=== PATIENT | male | born 1985 | race Caucasian/White ===

== ENCOUNTER 2020-09-25 10:41 | Outpatient (REF) | payer OTHER, SELFPAY ==
[2020-09-25 13:11] LABS: Alanine Aminotransferase 34 U/L (0-40); Albumin Level 4.8 g/dL (3.5-5.0); Alkaline Phosphatase 79 U/L (39-117); Anion Gap 13 (12-20); Aspartate Amino Transferase 23 U/L (5-37); Bilirubin Total 0.5 mg/dL (0.0-1.0); Blood Urea Nitrogen 14 mg/dL (9-16); Calcium 9.5 mg/dL (8.4-10.2); Carbon Dioxide 28 mmol/L (22-29); Estimated Glomerular Filt Rate > 60; Glucose Fasting 87 mg/dL (60-99); Total Protein 7.7 g/dL (6.5-8.0)
[2020-09-25 13:17] LABS: Chloride 101 mmol/L (96-108); Potassium 4.4 mmol/L (3.3-5.1); Sodium 138 mmol/L (135-145)
== END 2020-09-25 10:42 | disposition home or self-care (01) ==
LOC: HO.MANLDS 10:41
PROVIDERS: PCP Internal Medicine; Visit Provider Physician Assistant
DX: E78.5 Hyperlipidemia, unspecified (principal)
CPT/HCPCS: 36415; 80053

== ENCOUNTER 2021-07-14 11:54 | Outpatient (REF) | payer OTHER, SELFPAY ==
[2021-07-14 13:18] LABS: Alanine Aminotransferase 44 U/L (0-40); Albumin Level 4.5 g/dL (3.5-5.0); Alkaline Phosphatase 83 U/L (39-117); Aspartate Amino Transferase 21 U/L (5-37); Bilirubin Direct < 0.2 mg/dL (0.0-0.5); Bilirubin Total 0.2 mg/dL (0.0-1.0); Total Protein 7.4 g/dL (6.5-8.0)
== END 2021-07-14 11:55 | disposition home or self-care (01) ==
LOC: HO.MANLDS 11:54
PROVIDERS: PCP Physician Assistant; Visit Provider Physician Assistant
DX: K76.9 Liver disease, unspecified (principal)
CPT/HCPCS: 36415; 80076

== ENCOUNTER 2022-05-16 13:55 | Outpatient (REF) | payer OTHER, SELFPAY ==
[2022-05-16 18:28] LABS: MANUAL DIFF FLAG NO
[2022-05-16 18:47] LABS: Alanine Aminotransferase 35 U/L (0-40); Albumin Level 4.6 g/dL (3.5-5.0); Alkaline Phosphatase 87 U/L (39-117); Anion Gap 15 (12-20); Aspartate Amino Transferase 20 U/L (5-37); Bilirubin Total 0.3 mg/dL (0.0-1.0); Blood Urea Nitrogen 12 mg/dL (9-16); Calcium 9.5 mg/dL (8.4-10.2); Carbon Dioxide 28 mmol/L (22-29); Chloride 103 mmol/L (96-108); Cholesterol 290 mg/dL; Estimated Glomerular Filt Rate > 60; Glucose Random 108 mg/dL (60-115); HDL Cholesterol 53 mg/dL; LDL Cholesterol Calculated 184 mg/dl; Potassium 4.2 mmol/L (3.3-5.1); Sodium 142 mmol/L (135-145); Total Protein 7.4 g/dL (6.5-8.0); Triglycerides 267 mg/dL
[2022-05-16 18:56] LABS: Basophils Percent Auto 0.2 % (0-2); Eosinophils Absolute Auto 0.1 X10*3/uL (0.0-0.4); Eosinophils Percent Auto 0.8 % (0-4); Hematocrit 44.4 % (42.0-52.0); Hemoglobin 14.7 g/dl (14.0-18.0); Imm Gran Abs Auto 0.05 X10*3/uL (0.00-0.03); Imm Gran Pct Auto 0.8 % (0.0-0.4); Lymphocytes Absolute Auto 1.5 X10*3/uL (1.2-4.9); Lymphocytes Percent Auto 25.8 % (20-40); Mean Corpuscular HGB Conc 33.1 g/dl (31.0-36.0); Mean Corpuscular Hemoglobin 28.1 pg (27.0-33.0); Mean Corpuscular Volume 84.7 fL (80.0-98.0); Mean Platelet Volume 10.6 fL (9.4-12.4); Monocytes Absolute Auto 0.6 X10*3/uL (0.1-1.2); Monocytes Percent Auto 10.4 % (2-11); Neutrophils Absolute Auto 3.7 x10*3/uL (2.0-8.3); Platelet Count 293 X10*3/uL (160-400); Red Blood Count 5.24 X10*6/uL (4.60-5.80); Red Cell Distribution Width 13.1 % (11.0-16.0)
== END 2022-05-16 13:56 | disposition home or self-care (01) ==
LOC: HO.MANLDS 13:55
PROVIDERS: Visit Provider Physician Assistant
DX: Z00.00 Encounter for general adult medical examination without abnormal findings (principal)
CPT/HCPCS: 36415; 80053; 80061; 85025

== ENCOUNTER 2024-10-29 09:53 | Outpatient (REF) | payer OTHER, SELFPAY ==
--- OUTSIDE RECORDS SUMMARY | 2024-10-29 11:18 | XMS_ITS | Continuity of Care Document ---
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 It does not include entries that were removed or entered in error. Problem Status Onset Date Problem Type Date of Resolution Comments Source joint pain, localized in the knee Inactive 01/31/20 12 Condition joint pain, localized in the knee: He was seen by orthopedics here. - Conservative management recommended. - f/u with PCP within [address] 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 Reviewed medical records. Reviewed DD Form 2796. Medical concerns addressed below. 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 No acute mental health concerns at this time. 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 Entered By: SHIRIN ERNANDEZ Comment: tobacco-noneDec 2012 Entered By: SHIRIN ERNANDEZ Comment: alcohol-social, no problemsDe 2012 Entered By: SHIRIN ERNANDEZ Comment: living with parentsDe 2012 Entered By: SHIRIN ERNANDEZ Comment: [facility] care [facility] [place] [facility] Injury of knee Active Condition Jul [id number] Entered By: SHIRIN ERNANDEZ Comment: surgery right knee 9.2011 [facility] [facility] testicular cancer Active Condition Jul 30, 2013 Entered By: SHIRIN ERNANDEZ Comment: age 14 right testicular. no chemo or radiation [facility] [place] [facility] Patient Education - Medication Inactive Condition [facility] Other Physical Therapy Inactive Condition DoD joint pain, localized in the shoulder Active Condition DoD common cold Inactive Condition DoD cellulitis of the right arm Inactive Condition DoD visit for: services physical in-theatre Inactive Condition DoD sebaceous cyst Inactive Condition DoD neoplasm - soft tissue Inactive Condition DoD epidermal inclusion cyst Inactive Condition DoD neck strain Inactive Condition Pt to st art medication as directedPt to f/u in 1 day, sooner PRN, immediately if difficulty breathing/nmbne ss/tinglingPt to rest, ice areaPt to be placed on waiver [facility] Patient Education - Injury Prevention Inactive Condition DoD superficial injury abrasion of lower leg Inactive Condition LT ant leg; recommended OTC Neosporin cream for next 2-3 days as well as protective bandages; keep wound clean and dry as able. [facility] Medications Combined list of outpatient medications from Department of Defense and Veterans Affairs facilities.Medications provided include 1) outpatient medications from the last 15 months, and 2) patient-reported medications. Medication Details Route Status Patient Instructions Prescription Expires Prescription Number Last Dispense Date Ordering Provider Order Date Order Qty Source azithromyci n 250 mg oral tablet 0 total refill(s ) Ordered 2021 No Facilit y Access baclofen 10 mg oral tablet baclofen 10 mg oral tablet Start Date: 10/22/21 Status: Ordered Repeat number: 1 Ordered 2021 No Facilit y Access buPROPion 150 mg/24 hours (XL) oral tablet, extended release buPROPio n 150 mg/24 hours (XL) oral tablet, extended release Start Date: 06/16/21 Status: Ordered Repeat number: 1 Ordered 2021 No Facilit y Access buPROPion 150 mg/24 hours (XL) oral tablet, extended release buPROPio n 150 mg/24 hours (XL) oral tablet, extended release Start Date: 11/13/21 Status: Ordered Repeat number: 1 Ordered 2021 No Facilit y Access buPROPion 150 mg/24 hours (XL) oral tablet, extended release buPROPio n 150 mg/24 hours (XL) oral tablet, extended release Start Date: 03/15/21 Status: Ordered Repeat number: 1 Ordered 2021 No Facilit y Access buPROPion 150 mg/24 hours (XL) oral tablet, extended release buPROPio n 150 mg/24 hours (XL) oral tablet, extended release Start Date: 04/23/21 Status: Ordered Repeat number: 1 Ordered 2021 No Facilit y Access cyclobenzap rine 10 mg oral tablet cycloben zaprine 10 mg oral tablet Start Date: 11/13/21 Status: Ordered Repeat number: 1 Ordered 2021 No Facilit y Access cyclobenzap rine 10 mg oral tablet cycloben zaprine 10 mg oral tablet Start Date: 05/06/21 Status: Ordered Repeat number: 1 Ordered 2021 No Facilit y Access cyclobenzap rine 10 mg oral tablet cycloben zaprine 10 mg oral tablet Start Date: 09/29/20 Status: Ordered Repeat number: 1 Ordered 2021 No Facilit y Access cyclobenzap rine 10 mg oral tablet cycloben zaprine 10 mg oral tablet Start Date: 06/26/21 Status: Ordered Repeat number: 1 Ordered 2021 No Facilit y Access DULoxetine 40 mg oral delayed release capsule DULoxeti ne 40 mg oral delayed release capsule Start Date: 10/22/21 Status: Ordered Repeat number: 1 Ordered 2021 No Facilit y Access DULoxetine 60 mg oral delayed release capsule DULoxeti ne 60 mg oral delayed release capsule Start Date: 11/13/21 Status: Ordered Repeat number: 1 Ordered 2021 No Facilit y Access gabapentin 300 mg oral capsule gabapent in 300 mg oral capsule Start Date: 10/22/21 Status: Ordered Repeat number: 1 Ordered 2021 No Facilit y Access nabumetone 500 mg oral tablet nabumeto ne 500 mg oral tablet Start Date: 10/28/21 Status: Ordered Repeat number: 1 Ordered 2021 No Facilit y Access predniSONE 20 mg oral tablet predniSO NE 20 mg oral tablet Start Date: 09/29/20 Status: Ordered Repeat number: 1 Ordered 2021 No Facilit y Access predniSONE 20 mg oral tablet predniSO NE 20 mg oral tablet Start Date: 06/26/21 Status: Ordered Repeat number: 1 Ordered 2021 No Facilit y Access predniSONE 20 mg oral tablet predniSO NE 20 mg oral tablet Start Date: 05/06/21 Status: Ordered Repeat number: 1 Ordered 2021 No Facilit y Access sertraline 25 mg oral tablet sertrali ne 25 mg oral tablet Start Date: 04/13/21 Status: Ordered Repeat number: 1 Ordered 2021 No Facilit y Access sertraline 25 mg oral tablet sertrali ne 25 mg oral tablet Start Date: 04/30/21 Status: Ordered Repeat number: 1 Ordered 2021 No Facilit y Access sertraline 25 mg oral tablet sertrali ne 25 mg oral tablet Start Date: 05/16/21 Status: Ordered Repeat number: 1 Ordered 2021 No Facilit y Access sertraline 25 mg oral tablet sertrali ne 25 mg oral tablet Start Date: 09/21/21 Status: Ordered Repeat number: 1 Ordered 2021 No Facilit y Access sertraline 50 mg oral tablet sertrali ne 50 mg oral tablet Start Date: 07/13/21 Status: Ordered Repeat number: 1 Ordered 2021 No Facilit y Access sertraline 50 mg oral tablet sertrali ne 50 mg oral tablet Start Date: 06/15/21 Status: Ordered Repeat number: 1 Ordered 2021 No Facilit y Access Allergies, Adverse Reactions, Alerts Combined list of allergies from Department of Defense and Veterans Affairs facilities. It does not include entries that were removed or entered in error. Substance Category Reaction Severity Reaction type Status Date Reported Comments Source erythromyc in-sulfiso xazole Propensity to adverse reactions to substance Unknown Active 5 Unknown Organization [facility] (BRANDEN E-SUCC/SUL FISOXAZOLE ) Drug allergy (disorder) Unknown active 5 [employer] Immunizations Combined list of available immunizations from the Department of Defense and Veterans Affairs facilities. Immunization Series Date Given Administered By Site Reaction Lot Number CVX Code Drug Bulk Picker Status Comments Source Influenza, injectable, quadrivalent, preservative free 0 2021 [id number] 150 [employer]Kline (SKB) complet ed Influenza , injectabl e, quadrival ent, preservat deshaun free [facility] COVID Vaccine Moderna 2021 TRS 207 complet ed COVID Vaccine Moderna 09/03/21 Given Ambulat ory Pharmac y COVID-19, mRNA, LNP-S, PF, 100 mcg or 50 mcg dose 2021 ADITYA [employer] (MOD) Not Given COVID-19, mRNA, LNP-S, PF, 100 mcg or 50 mcg dose DoD SARS-COV-2 (COVID-19) vaccine, mRNA, spike protein, LNP, preservative free, 100 mcg or 50 mcg dose 0 2021 Unknown, Provider TRS 207 [employer] (MOD) complet ed SARS-COV- 2 (COVID-19 ) vaccine, mRNA, spike protein, LNP, preservat deshaun free, 100 mcg or 50 mcg dose DoD influenza, injectable, quadrivalent- pf 2020 [id number] 150 [place] complet ed influenza , injectabl e, quadrival ent-pf 05/13/21 Given Ambulat ory Pharmac y Influenza, injectable, quadrivalent, preservative free 1 2020 [id number] 150 [facility] (SKB) complet ed Influenza , injectabl e, quadrival ent, preservat deshaun free DoD tetanus, diphtheria, acellular pertu is 2020 [id number] 115 sanofi pasteur complet ed tetanus, diphtheri a, acellular pertussis 04/02/21 Given Ambulat ory Pharmac y tetanus toxoid, reduced diphtheria toxoid, and acellular pertu is vaccine, adsorbed 4 2020 [id number] 115 Sanofi Pasteur (PMC) complet ed tetanus toxoid, reduced diphtheri a toxoid, and acellular pertussis vaccine, adsorbed DoD COVID Vaccine Moderna 2020 [id number] 207 complet ed COVID Vaccine Moderna 12/04/20 Given Ambulat ory Pharmac y SARS-COV-2 (COVID-19) vaccine, mRNA, spike protein, LNP, preservative free, 100 mcg or 50 mcg dose 2 2020 [id number] 207 [employer] (MOD) complet ed SARS-COV- 2 (COVID-19 ) vaccine, mRNA, spike protein, LNP, preservat deshaun free, 100 mcg or 50 mcg dose DoD COVID Vaccine Moderna 2020 [id number] 207 complet ed COVID Vaccine Moderna 10/31/20 Given Ambulat ory Pharmac y SARS-COV-2 (COVID-19) vaccine, mRNA, spike protein, LNP, preservative free, 100 mcg or 50 mcg dose 1 2020 [id number] 207 Moderna [place], Inc. (MOD) complet ed SARS-COV- 2 (COVID-19 ) vaccine, mRNA, spike protein, LNP, preservat deshaun free, 100 mcg or 50 mcg dose DoD influenza, injectable, quadrivalent- pf 2019 [id number] 077 150 Seq[employer] complet ed influenza , injectabl e, quadrival ent-pf 07/05/20 Given Ambulat ory Pharmac y Influenza, injectable, quadrivalent, preservative free 1 2019 [id number] 077 150 [employer] (SEQ) complet ed Influenza , injectabl e, quadrival ent, preservat deshaun free DoD influenza, injectable, quadrivalent- pf 2018 [id number] 520 150 [employer] complet ed influenza , injectabl e, quadrival ent-pf 05/26/19 Given Ambulat ory Pharmac y Influenza, injectable, quadrivalent, preservative free 1 2018 [id number] 520 150 [employer] (SEQ) complet ed Influenza , injectabl e, quadrival ent, preservat deshaun free DoD influenza, injectable, quadrivalent 2017 [id number] 158 [employer] complet ed influenza , injectabl e, quadrival ent 06/13/18 Given Ambulat ory Pharmac y influenza, injectable, quadrivalent, contains preservative 15 2017 [id number] 158 Se[employer] (SEQ) comple t ed influenza , injectabl e, quadrival ent, contains preservat deshaun DoD typhoid Vi capsular polysaccharid e vac 2017 [id number] 101 sanofi pasteur complet ed typhoid Vi capsular polysacch aride vac 12/23/17 Given Ambulat ory Pharmac y typhoid Vi capsular polysaccharid e vaccine 1 2017 [id number] 101 Sanofi Pasteur (PMC) complet ed typhoid Vi capsular polysacch aride vaccine DoD measles virus vaccine 0 2017 05 () Not Given measles virus vaccine DoD rubella virus vaccine 0 2017 06 () Not Given rubella virus vaccine DoD mumps virus vaccine 0 2017 07 () Not Given mumps virus vaccine DoD varicella virus vaccine 0 2017 21 () Not Given varicella virus vaccine DoD Influenza, inj, MDCK, quadrivalent- pf [id number] 171 Se[employer] complet ed Influenza , inj, MDCK, quadrival ent-pf 06/23/17 Given Ambulat ory Pharmac y Influenza, injectable, Madin Millie Canine Kidney, preservative free, quadrivalent 14 [id number] 171 Se[employer]irus (SEQ) comple t ed Influenza , injectabl e, Madin [place] Canine Kidney, preservat deshaun free, quadrival ent DoD influenza, seasonal, injectable-pf 2015 [id number] 140 Seqirus complet ed influenza , seasonal, injectabl e-pf 06/04/16 Given Ambulat ory Pharmac y Influenza, seasonal, injectable, preservative free 1 2015 [id number] 140 Se[employer]irus (SEQ) comple t ed Influenza , seasonal, injectabl e, preservat deshaun free DoD typhoid Vi capsular polysaccharid e vac 2015 [id number] 101 sanofi pasteur complet ed typhoid Vi capsular polysacch aride vac 11/13/15 Given Ambulat ory Pharmac y typhoid Vi capsular polysaccharid e vaccine 2 2015 E9250-6 101 Sanofi Pasteur (PMC) complet ed typhoid Vi capsular polysacch aride vaccine DoD influenza, seasonal, injectable 2014 [id number] [id number] 141 CSL Behring complet ed influenza , seasonal, injectabl e 05/23/15 Given Ambulat ory Pharmac y Influenza, seasonal, injectable 1 2014 [id number] 1A 141 CSL [employer]. (CSL) complet ed Influenza , seasonal, injectabl e DoD Influenza, injectable, MDCK-pf 2013 [id number] 153 Novartis Pharmaceutica complet ed Influenza , injectabl e, MDCK-pf 05/24/14 Given Ambulat ory Pharmac y Influenza, injectable, Madin [place] Canine Kidney, preservative free 11 2013 [id number] 153 Novartis Pharmaceutica l Martha. (NOV) complet ed Influenza , injectabl e, Madin [place] Canine Kidney, preservat deshaun free DoD FLU,3 YRS (HISTORICAL) 2012 88 complet ed [place] [facility] [place] [facility] Influenza, injectable, MDCK-pf 2012 [id number] 153 Novartis Pharmaceutica complet ed Influenza , injectabl e, MDCK-pf 06/16/13 Given Ambulat ory Pharmac y Influenza, injectable, Madin Millie Canine Kidney, preservative free 0 2012 [id number] 153 Novartis Pharmaceutica l Martha. (NOV) complet ed Influenza , injectabl e, Madin Millie Canine Kidney, preservat deshaun free DoD influenza, seasonal, injectable-pf 2011 [id number] 140 CSL Behring complet ed influenza , seasonal, injectabl e-pf 06/17/12 Given Ambulat ory Pharmac y Influenza, seasonal, injectable, preservative free 9 2011 [id number] 140 [facility] [employer] ([facility]) complet ed Influenza , seasonal, injectabl e, preservat deshaun free DoD anthrax vaccine 2011 [id number] 24 [employer] complet ed anthrax vaccine 10/31/11 Given Ambulat ory Pharmac y anthrax vaccine 3 2011 [id number] 24 [employer] [place] (MIP) complet ed anthrax vaccine DoD influenza, seasonal, injectable 2010 [id number] 1A 141 CSL Behring complet ed influenza , seasonal, injectabl e 05/13/11 Given Ambulat ory Pharmac y anthrax vaccine 2010 [id number] 24 [employer] complet ed anthrax vaccine 05/13/11 Given Ambulat ory Pharmac y anthrax vaccine 2 2010 [id number] 24 [employer] [place] (MIP) complet ed anthrax vaccine DoD Influenza, seasonal, injectable 8 2010 [id number] 1A 141 [facility] [employer]ies[employer] Inc. ([facility]) complet ed Influenza , seasonal, injectabl e DoD tetanus, diphtheria, acellular pertu is 2010 [id number] 115 sanofi pasteur complet ed tetanus, diphtheri a, acellular pertussis 03/16/11 Given Ambulat ory Pharmac y vaccinia (smallpox) vaccine 2010 VV04-00 3A 75 [employer] complet ed vaccinia (smallpox ) vaccine 03/16/11 Given Ambulat ory Pharmac y anthrax vaccine 2010 [id number] 24 [employer] complet ed anthrax vaccine 03/16/11 Given Ambulat ory Pharmac y anthrax vaccine 0 2010 [id number] 24 [employer] [place] ([facility]) complet ed anthrax vaccine DoD vaccinia (smallpox) vaccine 0 2010 VV04-00 3A 75 [facility] ([facility]) complet ed vaccinia (smallpox ) vaccine DoD tetanus toxoid, reduced diphtheria toxoid, and acellular pertu is vaccine, adsorbed 1 2010 [id number] 115 Sanofi Pasteur ([facility]) complet ed tetanus toxoid, reduced diphtheri a toxoid, and acellular pertussis vaccine, adsorbed DoD typhoid Vi capsular polysaccharid e vac 2010 K7732-3 101 sanofi pasteur complet ed typhoid Vi capsular polysacch aride vac 03/15/11 Given Ambulat ory Pharmac y typhoid Vi capsular polysaccharid e vaccine 1 2010 S1389-4 101 Sanofi Pasteur ([facility]) complet ed typhoid Vi capsular polysacch aride vaccine DoD DTAP, UNSPECIFIED FORMULATION 2010 107 complet ed [facility] [place] [facility] influenza virus vaccine,split 2009 [id number] 1A 15 [employer]ring complet ed influenza virus vaccine,s plit 07/11/10 Given Ambulat ory Pharmac y influenza virus vaccine, split virus (incl. purified surface antigen)-reti red CODE 1 2009 [id number] 1A 15 CSL [employer]otherap[employer] Inc. (CSL) complet ed influenza virus vaccine, split virus (incl. purified surface antigen)- retired CODE DoD Novel influenza-H1N 1-09, injectable 2009 [id number] 1 127 Novartis Pharmaceutica complet ed Novel influenza -Q3S2-97, injectabl e 09/13/09 Given Ambulat ory Pharmac y Novel influenza-H1N 1-09, injectable 1 2009 [id number] 1 127 Novartis Pharmaceutica l Martha. (NOV) complet ed Novel influenza -V9I9-76, injectabl e DoD influenza virus vaccine, live 2008 [id number] 111 [employer] comple t ed influenza virus vaccine, live 06/07/09 Given Ambulat ory Pharmac y influenza virus vaccine, live, attenuated, for intranasal use 1 2008 [id number] 111 [employer] Inc. (MED) complet ed influenza virus vaccine, live, attenuate d, for intranasa l use DoD influenza virus vaccine,split 2007 [id number] 2AA 15 GlaxoSmithKli ne complet ed influenza virus vaccine,s plit 07/04/08 Given Ambulat ory Pharmac y influenza virus vaccine, split virus (incl. purified surface antigen)-reti red CODE 1 2007 [id number] 2AA 15 [facility] (SKB) complet ed influenza virus vaccine, split virus (incl. purified surface antigen)- retired CODE DoD influenza virus vaccine,split 2007 [id number] 3AA 15 GlaxoSmithKli ne complet ed influenza virus vaccine,s plit 09/15/07 Given Ambulat ory Pharmac y influenza virus vaccine, split virus (incl. purified surface antigen)-reti red CODE 1 2007 [id number] 3AA 15 [place] (SKB) complet ed influenza virus vaccine, split virus (incl. purified surface antigen)- retired CODE [facility] tetanus-dipht h toxoids (Td) adult/adol 2006 [id number] 09 sanofi pasteur complet ed tetanus-d iphth toxoids (Td) adult/ado l 03/11/07 Given Ambulat ory Pharmac y tetanus and diphtheria toxoids, adsorbed, preservative free, for adult use (2 Lf of tetanus toxoid and 2 Lf of diphtheria toxoid) 1 2006 [id number] 09 Sanofi Pasteur (PMC) complet ed tetanus and diphtheri a toxoids, adsorbed, preservat deshaun free, for adult use (2 Lf of tetanus toxoid and 2 Lf of diphtheri a toxoid) DoD influenza virus vaccine,split 2006 [id number] 15 Unknown complet ed influenza virus vaccine,s plit 11/01/06 Given Ambulat ory Pharmac y influenza virus vaccine, split virus (incl. purified surface antigen)-reti red CODE 1 2006 [id number] 15 Other (OTH) complet ed influenza virus vaccine, split virus (incl. purified surface antigen)- retired CODE DoD influenza virus vaccine,split 2004 [id number] 15 sanofi pasteur complet ed influenza virus vaccine,s plit 07/10/05 Given Ambulat ory Pharmac y influenza virus vaccine, split virus (incl. purified surface antigen)-reti red CODE 1 2004 [id number] 15 Sanofi Pasteur ([facility]) complet ed influenza virus vaccine, split virus (incl. purified surface antigen)- retired CODE DoD hepatitis A-hepatitis B vaccine 2004 [id number] 2AA 104 GlaxoSmithKli ne complet ed hepatitis A-hepatit is B vaccine 06/06/05 Given Ambulat ory Pharmac y hepatitis A and hepatitis B vaccine 3 2004 [id number] 2AA 104 SmithKline (SKB) complet ed hepatitis A and hepatitis B vaccine DoD hepatitis A-hepatitis B vaccine 2004 [id number] 5AA 104 GlaxoSmithKli ne complet ed hepatitis A-hepatit is B vaccine 11/20/04 Given Ambulat ory Pharmac y hepatitis A and hepatitis B vaccine 2 2004 [id number] 5AA 104 SmithKline (SKB) complet ed hepatitis A and hepatitis B vaccine DoD hepatitis A-hepatitis B vaccine 2004 [id number] 5AA 104 GlaxoSmithKli ne complet ed hepatitis A-hepatit is B vaccine 10/20/04 Given Ambulat ory Pharmac y poliovirus vaccine, inactivated 2004 [id number] 10 sanofi pasteur complet ed polioviru s vaccine, inactivat ed 10/20/04 Given Ambulat ory Pharmac y meningococcal polysaccharid e (MPSV4) 2004 [id number] 32 sanofi pasteur complet ed meningoco ccal polysacch aride (MPSV4) 10/20/04 Given Ambulat ory Pharmac y tetanus-dipht h toxoids (Td) adult/adol 2004 [id number] 09 sanofi pasteur complet ed tetanus-d iphth toxoids (Td) adult/ado l 10/20/04 Given Ambulat ory Pharmac y measles, mumps and rubella virus vaccine 1 2004 03 () Not Given measles, mumps and rubella virus vaccine DoD tetanus and diphtheria toxoids, adsorbed, preservative free, for adult use (2 Lf of tetanus toxoid and 2 Lf of diphtheria toxoid) 0 2004 [id number] 09 Sanofi Pasteur (PMC) complet ed tetanus and diphtheri a toxoids, adsorbed, preservat deshaun free, for adult use (2 Lf of tetanus toxoid and 2 Lf of diphtheri a toxoid) DoD poliovirus vaccine, inactivated 1 2004 [id number] 10 Sanofi Pasteur (PMC) complet ed polioviru s vaccine, inactivat ed DoD varicella virus vaccine 1 2004 21 () Not Given varicella virus vaccine DoD meningococcal polysaccharid e vaccine (MPSV4) 0 2004 [id number] 32 Sanofi Pasteur (PMC) complet ed meningoco ccal polysacch aride vaccine (MPSV4) DoD hepatitis A and hepatitis B vaccine 1 2004 [id number] 5AA 104 [employer] (SKB) complet ed hepatitis A and hepatitis B vaccine DoD influenza virus vaccine, live 2004 [id number] 111 Medimmune Inc comple t ed influenza virus vaccine, live 10/14/04 Given Ambulat ory Pharmac y tuberculin purified protein derivative 2004 [id number] 96 sanofi pasteur complet ed tuberculi n purified protein derivativ e 10/14/04 Given Ambulat ory Pharmac y influenza virus vaccine, live, attenuated, for intranasal use 0 2004 [id number] 111 [employer] (MED) complet ed influenza virus vaccine, live, attenuate d, for intranasa l use DoD Encounters Combined list of: 1) Encounters from Department of Veterans Affairs facilities going backup to the last 18 months, not all VA inpatient encounters are included; 2) Encounters from the Department of Defense facilities going backup to 280 months. Location Location Details Encounter Type Encounter Number Reason For Visit Attending Provider ADM Date DC Date Status Disposition Source [employer]([facility]) OUTPATIENT [id number] scratch on leg SHEMAR PORTER 03/07 Released w/o Limitations [employer]([facility]) [employer]([facility] OUTPATIENT [id number] l neck pain JENNIFER VALDES 03/10 Released with Work/Duty Limitations [employer] OUTPATIENT [id number] 05/13 Released w/o Limitations [facility] OUTPATIENT [id number] 05/16 Released w/o Limitations [facility] OUTPATIENT [id number] 05/19 Released w/o Limitations [facility] OUTPATIENT [id number] 05/19 Released w/o Limitations [facility] OUTPATIENT [id number] 09/27 Released w/o Limitations [facility] OUTPATIENT [id number] 09/28 Released w/o Limitations [facility] OUTPATIENT [id number] 10/30 Released w/o Limitations [facility] OUTPATIENT [id number] 12/02 Released w/o Limitations [facility] OUTPATIENT [id number] 12/04 Released w/o Limitations [facility] OUTPATIENT [id number] 12/11 Released w/o Limitations [facility] OUTPATIENT [id number] 12/12 Released w/o Limitations [facility] OUTPATIENT [id number] 12/28 Released w/o Limitations [facility] OUTPATIENT [id number] 12/30 Released w/o Limitations [facility] OUTPATIENT [id number] Theater Provider 01/30 Released w/o Limitations [facility] OUTPATIENT [id number] 03/19 Released w/o Limitations [facility] [place] [address](AFN G 104 Med Sq-PH) OUTPATIENT [id number] Notes Entered by: MARIEL BIANCHI 16 Jun 2017 1248 ------- ------- ------- ------- -- ANNUAL AUDIO AM RAMIN GUADALUPE 06/16 [facility] [place] [address](A FNG [address] Med Sq-PH) [place] [address](AFN G 104 Med Sq-FM) OUTPATIENT [id number] Notes Entered by: MANJU ANTON 24 Sep 2017 1354 ------- ------- ------- ------- -- MANJU CHRISTIANSON 09/24 Released w/o Limitations [facility] [place] [place] [address](A FNG 104 Med Sq-FM) [place] [address](AFN G 104 Med Sq-FM) OUTPATIENT [id number] Notes Entered by: KAREN PENA 16 Oct 2017 1328 ------- ------- ------- ------- -- RAMIN Killian 10/16 Released w/[facility] Limitations [facility] [place] [address](A FNG 104 Med Sq-FM) [place] [address](AFN G 104 Med Sq-FM) OUTPATIENT [id number] Notes Entered by: MAYE MALIK 02 Jun 2018 1028 ------- ------- ------- ------- -- Knee and Finger Injures LENO MALIK 06/02 Released with Work/Duty Limitations [facility] [place] [address](A FNG 104 Med Sq-FM) [place] [address](AFN G 104 Med Sq-FM) OUTPATIENT [id number] Notes Entered by: MAYE MALIK 19 Oct 2018 0627 ------- ------- ------- ------- -- LENO VALENTINE 10/19 Released with Work/Duty Limitations [facility] [place] [address](A FNG 104 Med Sq-FM) [place] [address](AFN G 104 Med Sq-FM) OUTPATIENT [id number] Notes Entered by: MANJU ANTON 04 Oct 2019 1405 ------- ------- ------- ------- -- MANJU CHRISTIANSON 10/04 Released w/o Limitations [facility] [place] [address](A FNG 104 Med Sq-FM) [place] [address](AFN G 104 Med Sq-FM) OUTPATIENT [id number] Notes Entered by: MANJU ANTON 28 Feb 2020 1630 ------- ------- ------- ------- -- MANJU DAMON 02/27 Released w/o Limitations [facility] [place] [place] [address](A FNG 104 Med Sq-FM) [place] [address](AFN G 104 Med Sq-FM) OUTPATIENT [id number] Notes Entered by: MANJU ANTON 04 Jun 2020 1126 ------- ------- ------- ------- -- MANJU THORNE 06/04 [facility]ased [facility] Limitations [facility] [place] [address](A FNG 104 Med Sq-FM) [place] [address](AFN G 104 Med Sq-FM) OUTPATIENT [id number] Notes Entered by: TRINA BARROW 28 Oct 2020 1451 ------- ------- ------- ------- -- audio only PATRICIA HOUSE 10/28 Released w/o Limitations [facility] [place] [address](A FNG 104 Med Sq-FM) [place] [address](AFN G 104 Med Sq-FM) OUTPATIENT [id number] Notes Entered by: MANJU ANTON 03 Dec 2020 1414 ------- ------- ------- ------- -- MANJU CHRISTIANSON 12/03 Released w/o Limitations [facility] [place] [address](A FNG 104 Med Sq-FM) [place] [address](AFN G 104 Med Sq-FM) TELE CONSULT [id number] Notes Entered by: MANJU ANTON 22 Dec 2020 0945 ------- ------- ------- ------- -- MANJU Azul 12/22 [facility] [place] [address](A FNG 104 Med Sq-FM) [place] [address](AFN G 104 Med Sq-FM) TELE CONSULT [id number] MANJU ANTON 03/10 [facility] [place] [address](A FNG 104 Med Sq-FM) [place] [address](AFN G 104 Med Sq-FM) OUTPATIENT [id number] Notes Entered by: MANJU ANTON 01 Apr 2021 1047 ------- ------- ------- ------- -- DRHA4 MANJU ANTON 04/01 Released w/o Limitations [facility] [place] [address](A FNG 104 Med Sq-FM) [place] [address](AFN G 104 Med Sq-FM) OUTPATIENT [id number] Notes Entered by: MANJU ANTON 06 May 2021 1130 ------- ------- ------- ------- -- back pain MANJU ANTON 05/06 Released with Work/Duty Limitations [facility] [place] [address](A FNG 104 Med Sq-FM) [place] [address](AFN G 104 Med Sq-FM) OUTPATIENT [id number] Notes Entered by: MANJU ANTON 28 May 2021 1525 ------- ------- ------- ------- -- back pain MANJU ANTONZACK 05/28 Released with Work/Duty Limitations [facility] [place] [address](A FNG 104 Med Sq-FM) [place] [address](AFN G 104 Med Sq-FM) TELE CONSULT [id number] MANJU ANTON 06/29 [facility] [place] [address](A FNG 104 Med Sq-FM) [place] [address](AFN G 104 Med Sq-FM) TELE CONSULT [id number] MANJU ANTON 07/13 [facility] [place] [address](A FNG 104 Med Sq-FM) [place] [address](AFN G 104 Med Sq-FM) TELE CONSULT [id number] MANJU ANTON 07/29 [facility] [place] [address](A FNG 104 Med Sq-FM) [place] [address](AFN G 104 Med Sq-FM) TELE CONSULT [id number] MANJU ANTON 08/06 [facility] [place] [address](A FNG 104 Med Sq-FM) [place] [address](AFN G 104 Med Sq-FM) OUTPATIENT [id number] Notes Entered by: DESEANSTEPHANIEMANJUCLEMENTE ANGELES 13 Oct 2021 1106 ------- ------- ------- ------- -- Back pain MANJU ANTON KARTHIK 10/13 Released with Work/Duty Limitations [facility] [place] [address](A FNG 104 Med Sq-FM) [place] [address](AFN G 104 Med Sq-FM) OUTPATIENT [id number] Notes Entered by: MANJU ANTONZACK 20 Oct 2021 0858 ------- ------- ------- ------- -- low back pain MANJU ANTON 10/20 Released with Work/Duty Limitations [facility] [place] [address](A FNG 104 Med Sq-FM) [facility], [place] [address](AFN G 104 Med Sq-FM) OUTPATIENT [id number] Notes Entered by: RANDALL ROB,[facility] ISTINE JAVED 27 Oct 2021 1336 ------- ------- ------- ------- -- Annual Audiogr am / PHAQ MANJU ANTONONE 10/27 Released with Work/Duty Limitations [facility] [place] [address](A FNG 104 Med Sq-FM) [facility], [place] [address](AFN G 104 Med Sq-FM) TELE CONSULT [id number] MANJU ANTONONE 11/02 [facility] [place] [address](A FNG 104 Med Sq-FM) [facility], [place] [address](AFN G 104 Med Sq-FM) TELE CONSULT [id number] MANJU ANTONONE 12/16 [facility] [place] [address](A FNG 104 Med Sq-FM) [facility], [place] [address](AFN G 104 Med Sq-FM) TELE CONSULT [id number] MANJU ANTON NOONE 12/28 [facility] [place] [address](A FNG 104 Med Sq-FM) [facility], [place] [address](AFN G 104 Med Sq-FM) TELE CONSULT [id number] MANJU ANTONONE 12/30 [facility] [place] [address](A FNG 104 Med Sq-FM) [place] [address](AFN G 104 Med Sq-FM) TELE CONSULT [id number] MANJU ANTON KARTHIK 01/07 [facility] [place] [address](A FNG 104 Med Sq-FM) [place] [address](AFN G 104 Med Sq-FM) TELE CONSULT [id number] MANJU ANTON KARTHIK 01/20 [facility] [place] [address](A FNG 104 Med Sq-FM) [place] [address](AFN G 104 Med Sq-FM) OUTPATIENT [id number] Notes Entered by: MANJU ANTON 01 Apr 2022 1148 ------- ------- ------- ------- -- raya gtz DESEANMANJU BRITO 04/01 Released with Work/Duty Limitations [facility] [place] [address](A FNG 104 Med Sq-FM) [place] [address](AFN G 104 Med Sq-FM) TELE CONSULT [id number] MANJU ANTON KARTHIK 08/25 [facility] [place] [address](A FNG 104 Med Sq-FM) [place] [address](AFN G 104 Med Sq-FM) OUTPATIENT [id number] Notes Entered by: MANJU ANTON 20 Sep 2022 1452 ------- ------- ------- ------- -- NAYLA STEPHANIE ANTONCLEMENTE ANGELES 09/20 Released with Work/Duty Limitations [facility] [place] [address](A FNG 104 Med Sq-FM) [place] [address](AFN G 104 Med Sq-FM) OUTPATIENT [id number] Notes Entered by: LILIANA HOPKINS 20 Oct 2022 1745 ------- ------- ------- ------- -- PHAQ Derick cole ZHANG BELL Rojelio 10/20 Released w/o Limitations [facility] [place] [address](A FNG 104 Med Sq-FM) Procedures Combined list of: 1) [facility], not all [place] non-surgical procedures are included; 2) All procedures from the Department of Defense facilities. Procedure Procedure Type Code Date Perfomer Comments Sourc e NONINVASIVE EAR OR PULSE OXIMETRY FOR OXYGEN SATURATION; SINGLE DETERMINATION 7 [facility] PSYCHIATRIC DIAGNOSTIC EVALUATION 2 [facility] Psychiatric Diagnostic Evaluation Psychiatric Diagnostic Evaluation [address] [facility] Psychometric Emotional / Behavioral A e ment Psychometric Emotional / Behavioral Assessment [address] [facility] No data available for this section Ambulato ry Pharmacy Social History Combined list of available smoking, tobacco, and other social history from Department of Defense and Veterans Affairs facilities. Social History Type Response Date Comment Sourc e Tobacco smoking status NHIS LIFETIME NON-TOBACCO USER 07/21 [place] This section is an empty social history section. DoD Assessment and Plan Combined list of future care activities from Department of Defense and Veterans Affairs facilities (e.g., assessment and plan notes, appointments, orders, and referrals). Additional future care activities may be listed in the Plan of Care section. Result Assessment and Plan Date Source Assessment and Plan No data available for this section 10/29/2024 Ambulatory Pharmacy Functional Status Combined list of recent functional and cognitive assessments recorded at [facility] [place] Functional [place]iss Measurement (FIM) Scale: 1 = Total Assistance (Subject = 0% +), 2 = Maximal Assistance (Subject = 25% +), 3 = Moderate Assistance (Subject = 50% +), 4 = Minimal Assistance (Subject = 75% +), 5 = Supervision, 6 = Modified Prentiss (Device), 7 = Complete Prentiss (Timely, Safely). Assessment Date/Time Source Assessment Type Assessment Skill Assessment Score Assessment Details No data available for this section
--- OUTSIDE RECORDS SUMMARY | 2024-10-29 11:18 | XMS_ITS | Data Portability ---
Author Organization [facility] Service Address [address] [place] [address] Assessment No assessment recorded. Plan of Treatment Reminders Order Date Submit Date Provider Last Modified By Organization Details Last Modified Time Details Appointments ANNUAL EXAM 2024 09:30A M DUSTY RUIZ Not available Not available Not available ANNUAL EXAM 2025 09:30A M DUSTY RUIZ Not available Not available Not available Lab CMP, serum or plasma 2024 025 [facility], [address] [place] [address], [id number], 10/29/2024 09:45:13 lipid panel, blood 2024 025 [facility], [address] [place] [address], [address], 10/29/2024 09:45:14 CBC w/ auto diff 2024 025 [facility], [address] [place] [address], 112[address], 10/29/2024 09:45:13 hemoglobi n A1c, QN, blood 2024 025 [facility], [address] [place] [address], 10[address], 10/29/2024 09:45:13 vitamin D, 25-hydrox y, total, serum 2024 025 [facility], [address] [place] [address], 99808, 10/29/2024 09:45:14 PSA, total + free, serum or plasma 2024 025 [facility], [address] [place] [address], 79[address], 10/29/2024 09:45:13 TSH + free T4, serum 2024 025 [facility], [address] [place] [address], [address], 10/29/2024 09:45:13 testoster one, free + total, serum 2024 025 [facility], [address] [place] [address], 194[address], 10/29/2024 09:45:14 iron + TIBC + ferritin, serum 2022 023 [facility], [address] [place] [address], [address], 05/17/2023 13:55:22 gamma-glu tamyl transfera se (ggt), serum 2022 023 [facility], [address] [place] [address], [address], 05/17/2023 13:55:22 ESR (erythroc yte sedimenta tion rate), blood 2022 023 [facility], [address] [place] [address], 75165, 05/17/2023 13:55:22 C reactive protein, QN, serum or plasma 2022 023 [facility], [address] [place] [address], 528[address], 05/17/2023 13:55:23 lipid panel, serum - 8 to 12 hour fast 2022 023 [facility], [address] [place] [address], 486[address], 05/17/2023 13:55:22 CMP, serum or plasma 2022 023 [facility], [address] [place] [address], 39183, 05/20/2023 08:59:21 CBC w/ auto diff 2022 023 [facility], [address] [place] [address], 89192, 05/17/2023 13:55:22 testoster one, free + total, serum 2022 023 [facility], [address] [place] [address], 93454, 05/17/2023 13:55:22 CBC w/ auto diff 2021 022 [facility], [address] [place] [address], 58480, 05/16/2022 13:40:37 CMP, serum or plasma 2021 022 [facility], [address] [place] [address], 86[address], 05/16/2022 13:40:37 lipid panel, blood 2021 022 [facility], [address] [place] [address], 27822, 05/16/2022 13:40:37 Referral None recorded. Procedures None recorded. Surgeries None recorded. Imaging MRI, lumbar spine, w/o contrast - h/x of chronic lumbar pain, acute injury with loss of ROM, h/x of annular tear L5 - S1, difficult y sitting for long periods of time, numbness in feet 2023 024 [email or web address], [address] [facility], [place], [address], 04/16/2024 10:36:59 US, neck, soft tissue 2021 022 [email or web address] [address] [facility], [address] [facility], [place], [address], 05/17/2022 08:25:02 Medication Orders methocarb christiane 750 mg tablet 2023 025 [facility] #21350, [address] [address], [place], [place], [id number], 10/29/2024 09:29:44 celecoxib 200 mg capsule 2023 025 [facility] #63166, [address] [address], [place], [place], [id number], 10/29/2024 09:29:29 oxycodone 5 mg tablet [email or web address] [place] [address] [facility] #48734, [address] [facility] [address], [place], [place], [id number], 10/29/2024 09:29:36 lisinopri l 2.5 mg tablet 2022 024 [facility] #14243, [address] [facility] [address], [place], [place], [id number], 04/09/2024 15:42:00 cyclobenz aprine 10 mg tablet 2021 022 [email or web address] [facility] #39672, [address] [address], [place], [place], [id number], 04/09/2024 15:41:51 lisinopri l 2.5 mg tablet 2021 022 [email or web address] [facility] #43102, [address] [facility] [address], [place], [place], [id number], 04/09/2024 15:41:49 gabapenti n 100 mg capsule 2021 022 [facility] #02737, [address], [place], [place], [id number], 05/16/2022 13:29:19 Patient TargetsNo targets recorded. Patient InstructionsNo instructions recorded. Reason for Referral None Reported. Results Created Date Observation Date Name Description Value Unit Range Abnormal Flag Note LastModifiedBy Organization Detail LastModifiedTime 12/23/19 22 11/20/2021 home sleep study No observ ation record ed. [facility] [address] [place], [address], 12/24/2021 09:56:29 06/09/20 22 06/09/2022 US, neck, soft tissu e No observ ation record ed. [facility] [address] [facility], [place], [address], 06/10/2022 09:13:06 04/22/20 24 04/18/2024 MRI, lumba r spine , w/o contr ast No observ ation record ed. [facility] [address] [address], [place], [address], 04/23/2024 14:48:23 Result Notes None recorded. Problems Name Problem SNOMED Code Status Onset Date Resolution Date Notes Provider Name and Address Organization Details Recorded Time Hyperlipid emia 74474300 Active [address] [place] [address], [address], [facility] 12:20:10 Anxiety 05232552 Active 2020 DUSTY RUIZ [address] [place] [address], [address], [facility] 1 11:11:49 Chronic low back pain 805932014 Active 2021 DUSTY RUIZ [address] [place], [address], [facility] 2 12:15:53 Tenosynovi tis of wrist 093569763 Active 2021 DUSTY RUIZ [address] [place], [address], [facility] 2 12:16:23 Spasm of back muscles 765766187 Active 2021 DUSTY RUIZ [address] [place] [address], [address], [facility] 2 13:34:54 Essential hypertensi on 77843763 Active 2021 DUSTY RUIZ [address] [place] [address], [address], [facility] 2 13:39:28 Sleep apnea 18412853 Active 2021 uses CPAP DUSTY RUIZ [address] [place] [address], [address], [facility] 2 13:42:06 Mass of soft tissue 224954732 Active 2021 DUSTY RUIZ [address] [place] [address], [address], [facility] 2 13:49:11 Acute sinusitis 40594294 Active 2022 DUSTY RUIZ [address] [place] [address], [address], [facility] 3 09:49:04 Melena 9243716 Active 2022 DUSTY RUIZ [address] [place] [address], [address], [facility] 3 13:39:54 Fatigue 75701815 Active 2022 DUSTY RUIZ [address] [place], [address], [facility] 3 13:40:06 Degenerati on of lumbar interverte bral disc 58952114 Active 2023 DUSTY RUIZ [address] [place], [address], [facility] 4 15:58:21 Annular tear of lumbar disc 915460212 Active 2023 DUSTY RUIZ [address] [place], [address], [facility] 4 16:00:07 Testostero ne level below reference range 974911678 Active 2024 DUSTY RUIZ [address] [place], [address], [facility] 5 09:38:18 Problem Notes None recorded. Procedures Surgical History None recorded. Imaging Results Imaging Date Name Status LastModified by [facility] Details LastModified Time 11/20/2021 home sleep study completed [facility] [address] [place] [address], [address], 12/24/2021 09:56:29 06/09/2022 US, neck, soft tissue completed [facility] [address] [place], [address], 06/10/2022 09:13:06 04/18/2024 MRI, lumbar spine, w/o contrast completed [facility] [address] [place] [address], [address], 04/23/2024 14:48:23 Procedure Notes None recorded. Medical Equipment None Reported. Allergies No known drug allergies Medications Name Sig Start Date Stop Date Status Note LastModified by Organization Details LastModified Time celecoxib 200 mg capsule TAKE 1 CAPSULE BY MOUTH TWICE DAILY DIRECTED 10/29 completed Not Available Not Available Not Available cyclobenzap rine 10 mg tablet TAKE 1 TABLET BY MOUTH THREE TIMES DAILY NEEDED 04/09 completed Not Available Not Available Not Available amoxicillin 500 mg capsule TAKE 2 CAPSULES BY MOUTH 3 TIMES A DAY FOR 5 DAYS 10/29 completed Not Available Not Available Not Available azithromyci n 250 mg tablet TAKE 2 TABLETS BY MOUTH TODAY, THEN TAKE 1 TABLET DAILY FOR 4 DAYS DIRECTED 10/29 completed Not Available Not Available Not Available benzonatate 200 mg capsule TAKE 1 CAPSULE BY MOUTH 3 TIMES A DAY, FOR 14 DAYS, NEEDED NEEDED FOR COUGH 10/29 completed Not Available Not Available Not Available Keflex 500 mg capsule Take 1 capsule every 6 hours by oral route. 05/29 completed Not Available Not Available Not Available ibuprofen 200 mg capsule Take 3 capsules every 6-8 hours by oral route as needed. 04/05 completed Not Available Not Available Not Available prednisone 20 mg tablet TAKE 1 TABLET BY MOUTH EVERY DAY FOR 7 DAYS 04/09 completed Not Available Not Available Not Available methocarbam ol 750 mg tablet TAKE 1 TABLET BY MOUTH THREE TIMES DAILY FOR 10 DAYS NEEDED 10/29 completed Not Available Not Available Not Available baclofen 10 mg tablet TAKE 1 TABLET BY MOUTH TWICE DAILY NEEDED 11/09 completed Not Available Not Available Not Available lidocaine 5 % topical patch 04/09 completed Not Available Not Available Not Available gabapentin 300 mg capsule TAKE 1 CAPSULE BY MOUTH EVERY DAY 05/16 completed Not Available Not Available Not Available sertraline 25 mg tablet TAKE 1 TABLET BY MOUTH EVERY DAY active Not Available Not Available No t Available gabapentin 100 mg capsule TAKE 1 CAPSULE BY MOUTH EVERY DAY 05/16 completed Not Available Not Available Not Available albuterol sulfate HFA 90 mcg/actuati on aerosol inhaler TAKE 2 PUFFS INHALATIO N 4 TIMES A DAY, NEEDED FOR WHEEZING 10/29 completed Not Available Not Available Not Available fluticasone propionate 50 mcg/actuati on nasal spray,suspe nsion SHAKE LIQUID AND USE 1 SPRAY IN EACH NOSTRIL TWICE A DAY 10/29 completed Not Available Not Available Not Available sertraline 50 mg tablet TAKE 1 TABLET BY MOUTH EVERY DAY 11/09 completed Not Available Not Available Not Available lisinopril 2.5 mg tablet Take 1 tablet every day by oral route for 90 days. 04/09 completed Not Available Not Available Not Available ipratropium bromide 21 mcg (0.03 %) nasal spray 10/29 completed Not Available Not Available Not Available naproxen 500 mg tablet 09/19 completed Not Available Not Available Not Available amoxicillin 875 mg-marisollou m clavulanate 125 mg tablet TAKE 1 TABLET BY MOUTH EVERY 12 HOURS FOR 7 DAYS 04/09 completed Not Available Not Available Not Available nabumetone 500 mg tablet TAKE 2 TABLETS BY MOUTH DAILY 05/16 completed Not Available Not Available Not Available oxycodone 5 mg tablet TAKE 1 TABLET BY MOUTH THREE TIMES DAILY FOR 7 DAYS DIRECTED 10/29 completed Not Available Not Available Not Available bupropion HCl XL 150 mg 24 hr tablet, extended release TAKE 1 TABLET BY MOUTH EVERY DAY active Not Available Not Available No t Available duloxetine 60 mg capsule,del ayed release TAKE 1 CAPSULE BY MOUTH EVERY DAY 05/16 completed Not Available Not Available Not Available ibuprofen 04/09 completed PRN Not Available Not Available Not Available duloxetine 40 mg capsule,del ayed release TAKE 1 CAPSULE BY MOUTH EVERY DAY 11/09 completed Not Available Not Available Not Available COVID-19 test specimen collection TEST DIRECTED 10/19 completed Not Available Not Available Not Available Vitals Date Recorded Body height Oxygen saturation Oxygen saturation in Arterial blood by Pulse oximetry Heart rate Systolic blood pressure Diastolic blood pressure Provider Name and Address Organization Details Last Updated DateTime 2 177.8 cm 98 % 98 % 79 /min 130 mm[Hg] 84 mm[Hg] Melisa Mejia [facility] 2 14:32:21 Date Recorded Body height Body mass index (BMI) Body weight Oxygen saturation Oxygen saturation in Arterial blood by Pulse oximetry Heart rate Systolic blood pressure Diastolic blood pressure Provider Name and Address Organization Details Last Updated DateTime 2 177.8 cm 32.9 kg/m2 631077. 09 g 98 % 98 % 72 /min 118 mm[Hg] 72 mm[Hg] Melisa Solis MA [facility] 2 13:30:31 Date Recorded Body weight Heart rate Oxygen saturation Oxygen saturation in Arterial blood by Pulse oximetry Systolic blood pressure Diastolic blood pressure Provider Name and Address Organization Details Last Updated DateTime 3 10666.7 3 g 66 /min 98 % 98 % 123 mm[Hg] 71 mm[Hg] Francisca Ibarra [facility] 3 13:35:30 Date Recorded Body weight Heart rate Oxygen saturation Oxygen saturation in Arterial blood by Pulse oximetry Systolic blood pressure Diastolic blood pressure Provider Name and Address Organization Details Last Updated DateTime 4 46480.3 7 g 78 /min 98 % 98 % 128 mm[Hg] 88 mm[Hg] Belen Zhang [facility] 4 15:43:12 Date Recorded Body height Body mass index (BMI) Body weight Heart rate Oxygen saturation Oxygen saturation in Arterial blood by Pulse oximetry Systolic blood pressure Diastolic blood pressure Provider Name and Address Organization Details Last Updated DateTime 5 180.34 cm 31.1 kg/m2 765741. 1 g 56 /min 98 % 98 % 128 mm[Hg] 82 mm[Hg] Aleksandr Anthony [facility] 5 09:31:01 Social History Question Answer Notes LastModified by Id[employer] ion Details LastModified Time Tobacco Smoking Status Never Smoker Alize garza [facility] 11/28/2017 12:01:21 What Was The Date Of Your Most Recent Tobacco Screening? 10/29/2024 [email or web address] Information not available 10/29/2024 Sex: Unknown Functional Status None recorded. Mental Status None recorded. Family History Nothing Reported. Medical History Condition Response Coronary Artery Disease N Other N Gout N Blood Diseases N Kidney Stones N Blood Transfusion N Breast Cancer N Depression N COPD N Lung Disease N Defects or Inherited Disease N Anxiety Disorder N Muscle, Joint, or Bone Problems N Obesity N Vision or Eye Problems N Arthritis N Polyps N Infertility N Mental Disorder N Cancer N Varicosities N Stroke N Endometriosis N Bladder or Kidney Problems N High Cholesterol N Liver Disease N Fibromyalgia N Headaches N Kidney Disease N Allergies/Hayfever N Heart Problems N Hospitalizations N Thyroid Problems N GI Problems N Skin Problems N Eating Disorder N Anemia N MRSA exposure N Constipation N Mental Illness N Ovarian Cancer N Diabetes N Seizures/Epilepsy N Tuberculosis N Congestive Heart Failure (CHF) N Eczema N Diverticulitis N Abuse/Domestic Violence N Asthma N Reflux/GERD N Hepatitis N Heart Disease N Pulmonary Embolism N Hypertension N Osteoporosis N Chicken Pox N Autism Spectrum Disorder (ASD) N Immunizations Vaccine Type Date Status Note Provider Nam e and Address Organization Details Recorded Time Anthrax, pre-exposure prophylaxis, post-exposure prophylaxis 1 completed Francisca Gencarelle null, [facility] 05/17/2023 13:30:53 Anthrax, pre-exposure prophylaxis, post-exposure prophylaxis 1 completed Francisca Gencarelle null, [facility] 05/17/2023 13:30:53 Anthrax, pre-exposure prophylaxis, post-exposure prophylaxis 2 completed Francisca Gencarelle null, [facility] 05/17/2023 13:30:53 COVID-19, mRNA, LNP-S, PF, 100 mcg/0.5mL dose or 50 mcg/0.25mL dose 1 completed Francisca Gencarelle null, [facility] 05/17/2023 13:30:53 COVID-19, mRNA, LNP-S, PF, 100 mcg/0.5mL dose or 50 mcg/0.25mL dose 1 completed Francisca Gencarelle null, [facility] 05/17/2023 13:30:53 Hep A-Hep B 5 completed Francisca Gencarelle null, [facility] 05/17/2023 13:30:53 Hep A-Hep B 5 completed Francisca Gencarelle null, [facility] 05/17/2023 13:30:53 Hep A-Hep B 5 completed Francisca Gencarelle null, [facility] 05/17/2023 13:30:53 IPV 5 completed Francisca Gencarelle null, [facility] 05/17/2023 13:30:53 typhoid, ViCPs 1 completed Francisca Gencarelle null, [facility] 05/17/2023 13:30:53 typhoid, ViCPs 6 completed Francisca Gencarelle null, [facility] 05/17/2023 13:30:53 typhoid, ViCPs 8 completed Francisca garza, [facility] 05/17/2023 13:30:53 Tdap 1 completed Mimi garza, [facility] 03/23/2021 14:49:19 Td (adult) 5 completed Mimi garza, [facility] 03/23/2021 14:49:30 Td (adult) 7 completed Mimi garza, [facility] 03/23/2021 14:49:41 vaccinia (smallpox) 1 completed Francisca garza, [facility] 05/17/2023 13:30:53 meningococcal MPSV4 5 completed Francisca Lewis [facility] 05/17/2023 13:30:53 Past Encounters Encounter ID Performer Location Encounter Start Date Encounter Closed Date Diagnosis/Indication Diagnosis SNOMED-CT Code Diagnosis ICD10 Code Diagnosis Note [id number] Fransisca Zamorano NP, [address],[place] [address] 11/28/2017 11:56:49 11/29/2017 08:13:58 Flexion deformity of finger 183104564 M21.249 Infection of skin and/or subcutaneous tissue 75313386 L08.9 keep hand warm/dry, call if no better [id number] Fransisca Zamorano NP, [address] [place] [address] 05/29/2018 15:45:30 05/30/2018 14:52:58 Pain in left knee 6340420921 94024 M25.562 keep appt NEOS [id number] Fransisca Zamorano NP, [address] [address] 09/19/2018 11:48:39 09/19/2018 12:42:52 Pain of left elbow joint 3386108451 3942066 M25.522 Pain in left arm 2869513 00 M79.602 Paresthesi a of upper limb 21545263 R20.2 [id number] Jonathan Villegas, DO [facility] [address] [facility] [address] [address] 11/07/2018 13:51:11 11/07/2018 14:33:03 Testicular mass 58414472 N50.89 will need US to start then urol if necess Fransisca Zamorano NP, [facility] [address] [facility] [address] [address] 12/26/2018 10:56:16 12/26/2018 11:55:11 Acute pharyngitis 513533238 J02.9 viral, rest, fluids Fever 554009381 R50.9 Call this afternoon for results Fransisca Zamorano NP, [facility] [address] [facility] [address] [address] 12/31/2018 10:54:56 12/31/2018 12:20:12 Cough 75355471 R05 call this afternoon for results Lymphocytopenia 43022742 D72.810 labs ordered this a.m.-print ed for pt to do in 2 weeks November CARLOS Albert [facility] [address] [facility] [address] [address] 02/12/2019 13:41:56 02/12/2019 15:25:28 Acute sinusitis 62952666 J01.90 Fever 215608986 R50.9 if above not resolved will get labs Lymphocytopenia 12910795 D72.810 resolved on repeat [id number] DUSTY RUIZ [facility] [address] [facility] [address] [address] 02/26/2020 13:24:25 02/26/2020 13:56:31 Adult health examination 206469895 Z00.00 no concerns today Active or passive immunization 618927234 Z23 does not know when last tetanus shot was Low back pain 657515905 M54.5 chronic low back pain [id number] DUSTY RUIZ [facility] [address] [facility] [address] [address] 09/25/2020 10:10:14 09/25/2020 12:18:24 Chest pain 57157407 R07.9 EKG in office was normal will order EKG stress test evaluate further Hyperlipidemia 15950504 E78.5 will fu with results [id number] DUSTY RUIZ [facility] [address] [facility] [address] [address] 03/05/2021 10:34:01 03/05/2021 12:15:41 Attention deficit hyperactivity disorder, 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 will trial wellbutrin and fu in a month to discuss effects, how well it worked [id number] DUSTY RUIZ [facility] [address] [facility] [address] [address] 03/23/2021 09:06:47 03/23/2021 09:32:19 Active or passive immunization 984701384 Z23 does not know when last tetanus shot was Adult heal th examination 341960636 Z00.00 no concerns today Lipoma of skin 307336923 D17.30 needs referral to get it removed [id number] DUSTY RUIZ [facility] [address] [facility] [address] [address] 04/05/2021 09:10:12 04/05/2021 14:06:37 Anxiety 46395325 F41.1 stable on medication [id number] DUSTY RUIZ [facility] [address] [facility] [address] [address] 04/28/2021 14:10:30 04/28/2021 16:34:59 Pain of right wrist 4459453899 56109 M25.531 will fu with ortho referral [id number] DUSTY RUIZ [facility] [address] [facility] [address] [address] 10/19/2021 11:52:42 10/20/2021 10:50:35 Chronic low back pain 222743177 M54.59 fu in two to three weeks Tenosynovi tis of wrist 808158594 M65.831 fu with ortho [place] [id number] DUSTY RUIZ [facility] [address] [facility] [address] [address] 11/09/2021 10:28:31 11/09/2021 10:59:02 Chronic low back pain 434856053 M54.59 fu in two to three weeks with recheck of medication s and patient's pain level Acute sinusitis 79874975 J01.01 will start on z helena Anxiety 66521719 F41.1 fu recheck in 2 to 3 weeks [id number] DUSTY RUIZ [facility] [address] [facility] [address] [address] 11/30/2021 14:14:21 12/01/2021 16:12:24 Chronic low back pain 912560575 M54.59 will increase gabapentin 100 mg and 300 mg to 400 mg in totalthe patient will fu with Anxiety 06115029 F41.1 improved [id number] DUSTY RUIZ [facility] [address] [facility] [address] [address] 05/16/2022 13:23:23 05/16/2022 14:20:16 Active or passive immunization 033786928 Z23 does not know when last tetanus shot was Adult heal examination 137200440 Z00.00 will f/u with [facility] is excellent Spasm of back muscles 20 0306890 M62.830 will refill the cyclobenza ye Essential hypertension 40099893 I10 will start on very low dose of lisinopril Mass of soft tissue 4449 29464 R22.9 will fu with [place] neck [id number] DUSTY RUIZ [facility] [address] [facility] [address] [address] 05/17/2023 13:30:44 05/17/2023 13:51:44 Active or passive immunization 474818338 Z23 does not know when last tetanus shot was Adult heal th examination 411801015 Z00.00 will f/u with [facility] is excellent Anxiety 00778312 F41.1 improved Essential hypertension 97439502 I10 stable Hyperlipidemia 21424118 E78.2 need recheck levels Melena 4939744 K92.1 will set up with lab work post bowel issue Fatigue 79529097 R53.83 will set up up [place] [id number] DUSTY RUIZ [facility] [address] [facility],[place] [address] 04/09/2024 15:31:31 04/09/2024 16:21:17 Chronic low back pain 384081310 M54.59 acute on chronictre atment plan as prescribed below Spasm of back muscles 20 5321931 M62.830 will set up with medication Depression screening 171 893195 Z13.31 SCREENING NEGATIVE Degenerati on of lumbar intervertebral disc 48769048 M51.36 agreed to MRI Annular te ar of lumbar disc 301733217 M51.36 will set up with repeat MRI [id number] DUSTY RUIZ [facility] [address] [facility],[place] [address] 10/29/2024 09:24:39 10/29/2024 09:45:35 Active or passive immunization 657428970 Z23 does not know when last tetanus shot was Adult heal th examination 790708294 Z00.00 BP is excellent [place]ost[place] ne level below reference range 508681587 R89.1 agreed to f/u lab work Health Concerns Section Related Observation LastModified by Organization Detai ls LastModified Time None Recorded Concern Status LastModified by Organization Details LastModified Time None Recorded Advance Directives Directive None Recorded Payers Encounter Date Sequence Insurance Name Policy Number Policy Sethi Covered Member ID Sethi Member ID Guarantor Name 11/30/2021 1 [employer] - DOS PRIOR TO 2024 - [employer] () Spencer Zepeda [id number] Spencer Zepeda 05/16/2022 1 [employer] - DOS PRIOR TO 2024 - [employer] () Spencer Zepeda [id number] Spencer Zepeda 05/17/2023 1 [employer] - DOS PRIOR TO 2024 - [employer] () Spencer Zepeda [id number] Spencer Zepeda 04/09/2024 1 [facility] HEALTH PLAN - FAMILY HEALTH PLAN (POS) [id number] Spencer Zepeda [id number] Spencer Zepeda 10/29/2024 1 [facility] HEALTH PLAN - FAMILY HEALTH PLAN (POS) [id number] Spencer Zepeda [id number] Spencer Zepeda Notes Date Note Type Note Provider Name a nd Address Organization Details Recorded Time 2 text/html 3 week fu the patient has been seeing chiropractor for different treatment options for the patient, stretching and manipulationthe patient is waiting to hear back from functional capacity testinghas an appt in two weeks, will call them back to be seen sooner if possible the patient reports that he feels better on the medicationwill titrate the medication again and fu after that DUSTY RUIZ [address] [place], [address], [facility] 11/30/2021 14:57:55 2 text/html Annual WellnessReported bypatient.Diet and Nutrition:healthy diet; discussed vitamin and supplement use; discussed portion control; discussed maintaining calcium balance; discussed diet improvement; working on coming down again the patient will try carb free again Fracture Risk:no history of fractures; no recent explained fracture; no sudden unexplained fractures; no previous musculoskeletal injuries Physical Activity:exercises on a regular basis; recent increase in physical activity; good physical condition Additional Lifestyle Factors:no tobacco use; drinks alcohol (mild-moderate) Depression Risk:never feels sad, empty, or tearful; no loss of interest in activities; no significant changes in weight; no sleep disturbances or insomnia; no agitation; no loss of energy; no feelings of worthlessness or guilt; no thoughts of suicide; no history of depression; no history of mood disorders Hearing:no loss of hearing Vision:no vision problems BP has been elevated for a bit at home and other doctors DUSTY RUIZ [address] [place], [address], [facility] 05/16/2022 13:51:15 3 text/html Annual WellnessReported bypatient.Diet and Nutrition:healthy diet; discussed vitamin and supplement use; discussed portion control; discussed maintaining calcium balance; discussed diet improvement Fracture Risk:no history of fractures; no recent explained fracture; no sudden unexplained fractures; no previous musculoskeletal injuries Physical Activity:exercises on a regular basis; recent increase in physical activity; good physical condition Additional Lifestyle Factors:no tobacco use; drinks alcohol (mild-moderate) Depression Risk:never feels sad, empty, or tearful; no loss of interest in activities; no significant changes in weight; no sleep disturbances or insomnia; no agitation; no loss of energy; no feelings of worthlessness or guilt; no thoughts of suicide; no history of depression; no history of mood disorders Hearing:no loss of hearing Vision:no vision problems DUSTY RUIZ [address] [place], [address], [facility] 05/17/2023 13:48:19 4 text/html ER f/u patient has been seen here previously for chronic low back pain evaluation and treatmenthas been stable for awhile after being [facility] [employer] [facility] per ER report developed acute onset lower back pain after being down and twistingsharp, stabbing pain without radiation, no symptoms suggestive of cauda equina or anything more severepatient was given XR lumbar spine and flexeril for the discomfortwill most likely need new MRI scans down if pain persists has otherwise used Advil and APAP for pain managementno foot drop or radiationbowel movements and urination are consistent no obvious neuro deficits ER reports probably MSK sprain rather than true bony issue TODAY: the patient pain is still in the same spotXR revealed arthritis of the lumbar spine the patient is still having the same pain will set up with new MRIhe will contact neurosurg, will need new MRI on file for them to see him DUSTY RUIZ [address] [place] [address], [phone] 04/09/2024 16:13:45 5 text/html Annual WellnessReported bypatient.Diet and Nutrition:healthy diet; discussed vitamin and supplement use; discussed portion control; discussed maintaining calcium balance; discussed diet improvement Fracture Risk:no history of fractures; no recent explained fracture; no sudden unexplained fractures; no previous musculoskeletal injuries Physical Activity:exercises on a regular basis; recent increase in physical activity; good physical condition Additional Lifestyle Factors:no tobacco use; drinks alcohol (mild-moderate) Depression Risk:never feels sad, empty, or tearful; no loss of interest in activities; no significant changes in weight; no sleep disturbances or insomnia; no agitation; no loss of energy; no feelings of worthlessness or guilt; no thoughts of suicide; no history of depression; no history of mood disorders Hearing:no loss of hearing Vision:no vision problems was on TRT, recommended f/u lab work DUSTY RUIZ [address] [place] [address], [phone], [place] [facility] 10/29/2024 09:45:33
--- OUTSIDE RECORDS SUMMARY | 2024-10-29 11:18 | XMS_ITS | Data Portability ---
Author Organization [place] [facility], Allergy Address [address] [place] [address] Care Team Providers Care Vacuum Applicator Operator Name Role Phone MARILEE SUAZO Primary Care Provider [phone] Assessment Encounter Date Assessment Date Assessment LastModified by Organization Details LastModified Time 07/04/2024 07/04/2024 Patient describes nasal congestion when he lays supine. This triggers him to reposition multiple times through the night. Recommend treatment of the vasomotor rhinitis with Atrovent. Reviewed crossarm technique as well as titrating to tolerance. His main concern was related to his sleep disordered breathing. He describes a history of obstructive sleep apnea, unfortunately a sleep study was not available for review so I am not aware of the severity of his condition. A fiberoptic laryngoscopy was benign. Discussed treatment options ranging from mandible advancement device, tonsillectomy uvulopalatophary ngoplasty, inspire hypoglossal nerve stimulator implant. Patient will locate his sleep study, uploaded to the portal and we may review results through the portal or in person in approximately 2 months [email or web address] Not available 07/04/2024 11:16:07 10/03/2024 10/03/2024 consider mandible advancement device for mild DIMPLE. Also interested in pursuing allergy testing to better understand if there is an association with nasal congestion and chronic symptoms that are not relieved by medical management with nose sprays. [email or web address] Not available 10/03/2024 14:33:43 Plan of Treatment Reminders Order Date Submit Date Provider Last Modified By Organization Details Last Modified Time Details Appointments None recorded. Lab None recorded. Referral None recorded. Procedures allergy testing, skin prick (PROC) 2024 025 [email or web address] Not available 11:46:30 intraderma l allergy skin testing (PROC) 2024 025 [email or web address] Not available 5 11:46:30 pulmonary function test procedure (PROC) 2024 025 [email or web address] Not available 5 11:46:30 pulse oximetry (PROC) 2024 025 [email or web address] Not available 5 11:46:30 Surgeries None recorded. Imaging None recorded. Medication Orders ipratropiu m bromide 21 mcg (0.03 %) nasal spray 2023 [id number], [address] [place] [address], [place], [id number], 4 11:16:12 Patient TargetsNo targets recorded. Patient InstructionsNo instructions recorded. Reason for Referral None Reported. Results Created Date Observation Date Name Description Value Unit Range Abnormal Flag Note LastModifiedBy Organization Detail LastModifiedTime 07/04/20 24 09/16/2016 imagi ng/di agnos tic resul t No observ ation record ed. [facility] [address] [place], [address], 07/31/2024 11:31:02 07/04/20 24 11/20/2021 imagi ng/di agnos tic resul t No observ ation record ed. [facility] [address] [facility] [address], [place], [address], 07/31/2024 11:31:02 Result Notes None recorded. Problems Name Problem SNOMED Code Status Onset Date Resolution Date Notes Provider Name and Address Organization Details Recorded Time Obstructive sleep apnea syndrome 54513928 Active RAMIN MARKS MD [address] [address], [place], [address], [facility] 5 17:08:51 Vasomotor rhinitis 6686319 Active RAMIN MARKS MD [address] [address], [place], [address], [place] [facility] 4 11:12:42 Allergic rhinitis 52060432 Active 025 RAMIN MARKS MD [address] [facility] [address], [place], [address], [place] [facility] 5 14:33:04 Problem Notes None recorded. Procedures Surgical History Date Name Laterality Status Provider Name and Address Organization Details Recorded Time 07/04/2024 FOL_DP completed RAMIN MARKS MD [address] [facility] [address], [place], [address], [place] [facility] 07/03/2024 17:04:48 Imaging Results Imaging Date Name Status LastModified by [facility] Details LastModified Time 09/16/2016 imaging/diag nostic result completed [facility] [address] [place], [address], 07/31/2024 11:31:02 11/20/2021 imaging/diag nostic result completed [facility] [address] [facility] [address], [place], [address], 07/31/2024 11:31:02 Procedure Notes None recorded. Medical Equipment None Reported. Allergies No known drug allergies Medications Name Sig Start Date Stop Date Status Note LastModified by Organization Details LastModified Time celecoxib 200 mg capsule TAKE 1 CAPSULE BY MOUTH TWICE DAILY DIRECTED 07/04 completed Not Available Not Available Not Available amoxicillin 500 mg capsule TAKE 2 CAPSULES BY MOUTH 3 TIMES A DAY FOR 5 DAYS 07/04 completed Not Available Not Available Not Available azithromyci n 250 mg tablet TAKE 2 TABLETS BY MOUTH TODAY, THEN TAKE 1 TABLET DAILY FOR 4 DAYS DIRECTED 07/04 completed Not Available Not Available Not Available benzonatate 200 mg capsule TAKE 1 CAPSULE BY MOUTH 3 TIMES A DAY, FOR 14 DAYS, NEEDED NEEDED FOR COUGH 07/04 completed Not Available Not Available Not Available prednisone 20 mg tablet TAKE 1 TABLET BY MOUTH EVERY DAY FOR 7 DAYS 07/04 completed Not Available Not Available Not Available methocarbam ol 750 mg tablet TAKE 1 TABLET BY MOUTH THREE TIMES DAILY FOR 10 DAYS NEEDED 07/04 completed Not Available Not Available Not Available lidocaine 5 % topical patch APPLY 1 PATCH TOPICALLY TO THE SKIN DAILY NEEDED FOR MODERATE PAIN REMOVE PATCHES AFTER 12 HOURS 07/04 completed Not Available Not Available Not Available albuterol sulfate HFA 90 mcg/actuati on aerosol inhaler TAKE 2 PUFFS INHALATIO N 4 TIMES A DAY, NEEDED FOR WHEEZING 07/04 completed Not Available Not Available Not Available fluticasone propionate 50 mcg/actuati on nasal spray,suspe nsion SHAKE LIQUID AND USE 1 SPRAY IN EACH NOSTRIL TWICE A DAY 07/04 completed Not Available Not Available Not Available lisinopril 2.5 mg tablet 07/04 completed Not Available Not Available Not Available ipratropium bromide 21 mcg (0.03 %) nasal spray Hubbard 2 sprays twice a day by intranasa l route for 30 days, for nasal congestio n. active Not Available Not Available No t Available amoxicillin 875 mg-potassiu m clavulanate 125 mg tablet TAKE 1 TABLET BY MOUTH EVERY 12 HOURS FOR 7 DAYS 07/04 completed Not Available Not Available Not Available oxycodone 5 mg tablet TAKE 1 TABLET BY MOUTH THREE TIMES DAILY FOR 7 DAYS DIRECTED 07/04 completed Not Available Not Available Not Available Motrin active Not Available Not Availa ble Not Available Vitals Date Recorded Body height Body mass index (BMI) Body weight Provider Name and Address Organization Details Last Updated DateTime 07/04/2024 177.8 cm 30.8 kg/m2 18535.36 g Shandra Brown [facility] 07/04/2024 10:41:42 Date Recorded Body height Body mass index (BMI) Body weight Provider Name and Address Organization Details Last Updated DateTime 10/03/2024 177.8 cm 30.8 kg/m2 94869.36 g Malissa Ashby [facility] 10/03/2024 14:13:52 Social History None recorded. Functional Status None recorded. Mental Status None recorded. Family History Nothing Reported. Medical History Condition Response Arthritis Y Anxiety Y Cancer Y Migraines Y Headaches Y Hypertension Y Depression Y Past Encounters Encounter ID Performer Location Encounter Start Date Encounter Closed Date Diagnosis/Indication Diagnosis SNOMED-CT Code Diagnosis ICD10 Code Diagnosis Note [id number] RAMIN MARKS MD [facility] [address] [place] [address] 07/04/2024 10:16:53 07/04/2024 14:09:01 Obstructive sleep apnea syndrome 83096721 G47.33 Vasomotor rhinitis 28947 03 J30.0 [id number] RAMIN MARKS MD [facility] [address] [place] [address] 10/03/2024 13:47:34 10/03/2024 14:33:28 Obstructive sleep apnea syndrome 37805691 G47.33 Allergic rhinitis 020433 04 J30.9 Health Concerns Section Related Observation LastModified by Organization Detai ls LastModified Time None Recorded Concern Status LastModified by Organization Details LastModified Time None Recorded Advance Directives Directive None Recorded Payers Encounter Date Sequence Insurance Name Policy Number Policy Sethi Covered Member ID Sethi Member ID Guarantor Name 07/04/2024 1 [employer] - DOS PRIOR TO 2024 - [employer] () Spencer Zepeda [id number] Spencer Zepeda 10/03/2024 1 [employer] - DOS ON OR AFTER 2024 - [employer] () Spencer Zepeda [id number] Spencer Zepeda Notes Date Note Type Note Provider Name and Address Organization Details Recorded Time 07/04/2024 text/html throatchokes whe n sleepingOSA - on CPAP but has difficulty tolerating and is not using itPSG report not available todaysx of DIMPLE with headache in AM9:30p-5:30a but with frequent toss and turn hx of nasal fracturenasal congestion is fluctuating when supine. no trial of medsno prior tonsil surgery RAMIN MARKS MD [address], [address], [place] [facility] 07/04/2024 11:16:32 10/03/2024 text/html DIMPLE - on CPAP bu t has difficulty tolerating and is not using itsx of DIMPLE with headache in AM9:30p-5:30a but with frequent toss and turnatrovent was not helpful hx of nasal fracturenasal congestion is fluctuating when supine. no trial of medsno prior tonsil surgery 11/20/2021 Home PSG at [facility] [address] and mixed eventsCPAP - interested in trying different masks as he generally doesnt tolerate it PV 07/04/24 Elizabeth - snoring, nasal congestion - trial graham MARKS MD [address] [place] [address], [place], [address], [place] [facility] 10/03/2024 14:33:56
--- OUTSIDE RECORDS SUMMARY | 2024-10-29 11:18 | XMS_ITS | Continuity of Care Document ---
Author Organization [facility], [facility] Address [address] [facility] [address] [place] [address] Assessment No assessment recorded. Plan of Treatment Reminders Order Date Submit Date Provider Last Modified By Organization Details Last Modified Time Details Appointments ANNUAL EXAM 2024 09:30A M DUSTY RUIZ Not available Not available Not available ANNUAL EXAM 2025 09:30A M DUSTY RUIZ Not available Not available Not available Lab CMP, serum or plasma 2024 025 [facility], [address] [place] [address], [id number], 10/29/2024 09:45:13 lipid panel, blood 2024 025 [facility], [address] [place] [address], [id number], 10/29/2024 09:45:14 CBC w/ auto diff 2024 025 [facility], [address] [place] [address], [id number], 10/29/2024 09:45:13 hemoglobi n A1c, QN, blood 2024 025 [facility], [address] [place] [address], [address], 10/29/2024 09:45:13 vitamin D, 25-hydrox y, total, serum 2024 025 [facility], [address] [place] [address], [address], 10/29/2024 09:45:14 PSA, total + free, serum or plasma 2024 025 [facility], [address] [place] [address], [address], 10/29/2024 09:45:13 TSH + free T4, serum 2024 025 [facility], [address] [place] [address], [address], 10/29/2024 09:45:13 testoster one, free + total, serum 2024 025 [facility], [address] [place] [address], [address], 10/29/2024 09:45:14 Referral None recorded. Procedures None recorded. Surgeries None recorded. Imaging None recorded. Medication Orders None recorded. Patient TargetsNo targets recorded. Patient InstructionsNo instructions recorded. Reason for Referral None Reported. Problems Name Problem SNOMED Code Status Onset Date Resolution Date Notes Provider Name and Address Organization Details Recorded Time Hyperlipid emia 97094944 Active 2020 DUSTY RUIZ [address] [place] [address], [phone], [facility] ([facility] 1 12:20:10 Anxiety 47079216 Active 2020 DUSTY RUIZ [address] [place] [address], [address], [facility] ([facility] 1 11:11:49 Chronic low back pain 602501587 Active 2021 DUSTY RUIZ [address] [place] [address], [address], [facility] ([facility] 2 12:15:53 Tenosynovi tis of wrist 568787767 Active 2021 DUSTY RUIZ [address] [place] [address], [address], [facility] ([facility] 2 12:16:23 Spasm of back muscles 391641232 Active 2021 DUSTY RUIZ [address] [place], [address], [facility] ([facility] 2 13:34:54 Essential hypertensi on 41335565 Active 2021 DUSTY RUIZ [address] [place], [address], [facility] ([facility] 2 13:39:28 Sleep apnea 05955418 Active 2021 uses CPAP DUSTY RUIZ [address] [place], [address], [facility] ([facility] 2 13:42:06 Mass of soft tissue 339126498 Active 2021 DUSTY RUIZ [address] [place], [address], [facility] ([facility] 2 13:49:11 Acute sinusitis 28693305 Active 2022 DUSTY RUIZ [address] [place], [address], [facility] ([facility] 3 09:49:04 Melena 6506697 Active 2022 DUSTY RUIZ [address] [place], [address], [facility] ([facility] 3 13:39:54 Fatigue 91407600 Active 2022 DUSTY RUIZ [address] [place], [address], [facility] ([facility] 3 13:40:06 Degenerati on of lumbar interverte bral disc 40510797 Active 2023 DUSTY RUIZ [address] [place], [address], [facility] ([facility] 4 15:58:21 Annular tear of lumbar disc 987292659 Active 2023 DUSTY RUIZ [address] [facility], [place], [address], [facility] ([facility] 4 16:00:07 Testostero ne level below reference range 936084745 Active 2024 DUSTY RUIZ [address] [place], [address], [facility] ([facility] 5 09:38:18 Problem Notes None recorded. Medical Equipment None Reported. [...] Available Not Available Not Available amoxicillin 875 mg-potassiu m clavulanate 125 [...] Updated DateTime 5 180.34 cm 31.1 kg/m2 838643. 1 g 56 /min 98 % 98 % 128 mm[Hg] 82 mm[Hg] Aleksandr Anthony [facility] Internal [facility] 5 09:31:01 Social History Question Answer Notes LastModified by Organizat ion Details LastModified Time Tobacco Smoking Status Never Smoker [facility]/28[facility]2017 12:01:21 What Was The Date Of Your Most Recent Tobacco Screening? 10/29/2024 [email or web address] Information not available 10/29/2024 Sex: Unknown Functional Status None recorded. Mental Status None recorded. Family History Nothing Reported. Medical History Condition Response Coronary Artery Disease N Gout N Other N Kidney Stones N Blood Diseases N Blood Transfusion N Breast Cancer N Lung Disease N Depression N COPD N Defects or Inherited Disease N Anxiety Disorder N Muscle, Joint, or Bone Problems N Obesity N Vision or Eye Problems N Arthritis N Infertility N Polyps N Mental Disorder N Cancer N Stroke N Varicosities N Endometriosis N Bladder or Kidney Problems N High Cholesterol N Liver Disease N Fibromyalgia N Headaches N Kidney Disease N Allergies/Hayfever N Heart Problems N Hospitalizations N Thyroid Problems N GI Problems N Eating Disorder N Skin Problems N Anemia N MRSA exposure N Constipation N Mental Illness N Diabetes N Ovarian Cancer N Seizures/Epilepsy N Tuberculosis N Congestive Heart Failure (CHF) N Eczema N Abuse/Domestic Violence N Diverticulitis N Asthma N Reflux/GERD N Hepatitis N Heart Disease N Pulmonary Embolism N Hypertension N Chicken Pox N Autism Spectrum Disorder (ASD) N Osteoporosis N Immunizations Vaccine Type Date Status Note Provider Nam e and Address Organization Details Recorded Time Anthrax, pre-exposure prophylaxis, post-exposure prophylaxis 1 completed Francisca Gencarelle kayla [facility] 05/17/2023 13:30:53 Anthrax, pre-exposure prophylaxis, post-exposure prophylaxis 1 completed Francisca Gencarelle kayla [facility] 05/17/2023 13:30:53 Anthrax, pre-exposure prophylaxis, post-exposure prophylaxis 2 completed [facility] 05/17/2023 13:30:53 COVID-19, mRNA, LNP-S, PF, 100 mcg/0.5mL dose or 50 mcg/0.25mL dose 1 completed Francisca Gencarelle null, [facility] 05/17/2023 13:30:53 COVID-19, mRNA, LNP-S, PF, 100 mcg/0.5mL dose or 50 mcg/0.25mL dose 1 completed Francisca Gencarelle null, [facility] 05/17/2023 13:30:53 Hep A-Hep B 5 completed Francisca Gencarelle null, [facility] 05/17/2023 13:30:53 Hep A-Hep B 5 completed Francisca Gencarelle null, [facility] 05/17/2023 13:30:53 Hep A-Hep B 5 completed Francisca Gencarelle null, [facility] 05/17/2023 13:30:53 IPV 5 completed Francisca Gencarelle null, [facility] 05/17/2023 13:30:53 typhoid, ViCPs 1 completed Francisca Gencarelle null, [facility] 05/17/2023 13:30:53 typhoid, ViCPs 6 completed Francisca Gencarelle null, [facility] 05/17/2023 13:30:53 typhoid, ViCPs 8 completed Francisca Gencarelle null, [facility] 05/17/2023 13:30:53 Tdap 1 completed Mimi Alvarado null, [facility] 03/23/2021 14:49:19 Td (adult) 5 completed Mimi Alvarado null, [facility] 03/23/2021 14:49:30 Td (adult) 7 completed Mimi Alvarado null, [facility] 03/23/2021 14:49:41 vaccinia (smallpox) 1 completed [facility] null, [facility] 05/17/2023 13:30:53 meningococcal MPSV4 5 completed [facility] 05/17/2023 13:30:53 Past Encounters Encounter ID Performer Location Encounter Start Date Encounter Closed Date Diagnosis/Indication Diagnosis SNOMED-CT Code Diagnosis ICD10 Code Diagnosis Note [id number] DUSTY RUIZ [facility] [address] [facility] [address] 10/29/2024 09:24:39 10/29/2024 09:45:35 Active or passive immunization 879957495 Z23 does not know when last tetanus shot was Adult heal th examination 223179542 Z00.00 BP is excellent Testostero ne level below reference range 093197950 R89.1 agreed to f/u lab work Health Concerns Section Related Observation LastModified by Organization Detai ls LastModified Time None Recorded Concern Status LastModified by Organization Details LastModified Time None Recorded Payers Encounter Date Sequence Insurance Name Policy Number Policy Sethi Covered Member ID Sethi Member ID Guarantor Name 10/29/2024 1 [facility] FAMILY HEALTH PLAN (POS) [id number] Spencer Zepeda [id number] Spencer Zepeda Notes Date Note Type Note Provider Name a nd Address Organization Details Recorded Time 5 text/html Annual WellnessReported bypatient.Diet and Nutrition:healthy [...] TRT, recommended f/u lab work DUSTY RUIZ [address] [place], [address], [facility] 10/29/2024 09:45:33
--- OUTSIDE RECORDS SUMMARY | 2024-10-29 11:19 | XMS_ITS | Continuity of Care Document ---
Author Organization [facility] Address [address] [place] [address], [address] [place] [address]- Care Team Providers Care Pilling Machine Operator Name Role Phone Jonathan Villegas DO Primary Care Physician Encounter [facility] Date(s): 05/06/24 - 10/03/24 [facility] [address] [place] [address] Drive [address] [place], [place] [address] Attending Physician: Tyree Cleveland MD Referring Physician: Diann Lr Encounter Type: Pre Office Visit Allergies, Adverse Reactions, Alerts No Known Allergies Problem List Condition Confirmation Course Effective Dates Status Health St [facility] Informant Obese class I Confirmed Active Social History Social History Type Response Smoking Status Never (less than 100 in lifetime) entered on: 10/26/21 Sex Sex Representation Male (finding) Patient Care team information Care Team Personnel Name: Jonathan Villegas DO Position: Reference Physician Member Role: PCP Address: [address] [place] [address] Internal [place], [place] [address] Telecom: Care Team Related Persons Name: JEEVAN PAUL Insurance Providers Guarantor name: FARRAH PAUL Health Plan Information #: 1 Payer: [facility] [employer] Member Number: [id number] Policy Number: NA Group Number: [id number] Health Plan Information #: 2 Payer: [employer] Member Number: [id number] Policy Number: NA Group Number: NA
--- OUTSIDE RECORDS SUMMARY | 2024-10-29 11:19 | XMS_ITS | Continuity of Care Document ---
Author Organization [facility] Address [address] [place] [address], [address] [place] [address]- Care Team Providers Care Regulatory Lead Name Role Phone Jonathan Villegas DO Primary Care Physician [phone] [place] [facility] [place]): 09/03/24 - 10/03/24 [facility] [address] [place] [address] Drive [address] [place], [place] [address] Attending Physician: Gustavo Paz Admitting Physician: Gustavo Paz Referring Physician: Gustavo Paz Encounter Type: Triage Allergies, Adverse Reactions, Alerts No Known Allergies [...] Position: Reference Physician Member Role: PCP Address: [address] [place] [address] Internal Medicine [place], [place] [address] Telecom: Care Team Related Persons Name: JEEVAN PAUL Insurance Providers Guarantor name: FARRAH HUMBERTO Health Plan Information #: 1 P[facility] Member Number: NA Policy Number: NA Group Number: NA Health Plan Information #: 2 Payer: [facility] Member Number: NA Policy Number: NA Group Number: NA
--- OUTSIDE RECORDS SUMMARY | 2024-10-29 11:19 | XMS_ITS | Continuity of Care Document ---
Author Organization [place] [facility], [facility] Address [address] [place] [address] Care Team Providers Care Quality Assurance Project Manager Name Role Phone MARILEE SUAZO Primary Care Provider [phone] Assessment Encounter Date Assessment Date Assessment LastModified by Organization Details LastModified Time 10/03/2024 10/03/2024 consider mandible advancement device for [...] prick (PROC) 2024 025 [email or web address] Not available 5 11:46:30 intraderma l allergy skin testing (PROC) [...] Details Recorded Time Obstructive sleep apnea syndrome 73538368 Active 024 RAMIN MARKS MD [address] [place], [place] [address], [place], [address], [facility] [place] 5 17:08:51 Vasomotor rhinitis 6239743 Active 024 RAMIN MARKS MD [address] [facility] [address], [place], [address], [facility] - [facility] [place] 4 11:12:42 Allergic rhinitis 14135818 Active 025 RAMIN MARKS MD [address] [address], [place], [address], [facility] - [facility] 5 14:33:04 Problem Notes None recorded. Procedures Surgical History Date Name Laterality Status Provider Name and Address Organization Details Recorded Time 07/04/2024 FOL_DP completed RAMIN MARKS MD [address] [address], [place], [address], [facility] 07/03/2024 17:04:48 Imaging Results None recorded. Procedure Notes None recorded. Medical Equipment None [...] bromide 21 mcg (0.03 %) nasal spray [place] 2 sprays twice a day by intranasa [...] Updated DateTime 10/03/2024 177.8 cm 30.8 kg/m2 81534.36 g Malissa Ashby [place] - [facility] 10/03/2024 14:13:52 Social History None recorded. Functional Status None recorded. Mental Status None recorded. Family History Nothing Reported. Medical History Condition Response Arthritis Y Anxiety Y Cancer Y Headaches Y Migraines Y Hypertension Y Depression Y Past Encounters Encounter ID Performer Location Encounter Start Date Encounter Closed Date Diagnosis/Indication Diagnosis SNOMED-CT Code Diagnosis ICD10 Code Diagnosis Note [id number] RAMIN MARKS MD [facility] [address] [address] 10/03/2024 13:47:34 10/03/2024 14:33:28 Obstructive sleep apnea syndrome 29187039 G47.33 Allergic rhinitis 560784 04 J30.9 Health Concerns Section Related Observation LastModified by Organization Detai ls LastModified Time None Recorded Concern Status LastModified by Organization Details LastModified Time None Recorded Payers Encounter Date Sequence Insurance Name Policy Number Policy Sethi Covered Member ID Sethi Member ID Guarantor Name 10/03/2024 1 [facility] - DOS ON OR AFTER 2024 - [employer] () Spencer Zepeda [id number] Spencer Zepeda Notes Date Note Type Note Provider Name and Address Organization Details Recorded Time 10/03/2024 text/html DIM[facility] - on CPAP bu t has difficulty tolerating and is not using itsx of [facility]IMPLE with headache in AM9:30p-5:30a but with frequent toss and turnatrovent was not helpful hx of nasal fracturenasal congestion is fluctuating when supine. no trial of medsno prior tonsil surgery 11/20[facility]20[facility] and mixed eventsCPAP - interested in trying different masks as he generally doesnt tolerate it PV 07/04/24 [facility] - snoring, nasal congestion - trial atrovent RAMIN MARKS MD [address] [place] [address], [place], [address], [place] [facility] 10/03/2024 14:33:56
[2024-10-29 13:23] LABS: MANUAL DIFF FLAG NO
[2024-10-29 13:36] LABS: Basophils Percent Auto 0.2 % (0-2); Eosinophils Absolute Auto 0.1 X10*3/uL (0.0-0.4); Hemoglobin 14.8 g/dl (14.0-18.0); Imm Gran Abs Auto 0.02 X10*3/uL (0.00-0.03); Imm Gran Pct Auto 0.4 % (0.0-0.4); Lymphocytes Absolute Auto 1.5 X10*3/uL (1.2-4.9); Lymphocytes Percent Auto 30.3 % (20-40); Mean Corpuscular HGB Conc 33.6 g/dl (31.0-36.0); Mean Corpuscular Hemoglobin 28.1 pg (27.0-33.0); Mean Corpuscular Volume 83.5 fL (80.0-98.0); Mean Platelet Volume 10.4 fL (9.4-12.4); Monocytes Absolute Auto 0.5 X10*3/uL (0.1-1.2); Monocytes Percent Auto 10.2 % (2-11); Neutrophils Absolute Auto 2.8 x10*3/uL (2.0-8.3); Neutrophils Percent Auto 57.9 % (45-73); Platelet Count 273 X10*3/uL (160-400); Red Blood Count 5.27 X10*6/uL (4.60-5.80); Red Cell Distribution Width 12.7 % (11.0-16.0); White Blood Count 4.8 X10*3/uL (4.8-10.8)
[2024-10-29 13:57] LABS: Estimated Average Glucose 105 mg/dL; Hemoglobin A1c % 5.3 % (<6.0)
[2024-10-29 14:08] LABS: Alanine Aminotransferase 31 U/L (0-40); Albumin Level 4.5 g/dL (3.5-5.0); Alkaline Phosphatase 74 U/L (39-117); Anion Gap 11 (12-20); Aspartate Amino Transferase 27 U/L (5-37); Bilirubin Total 0.4 mg/dL (0.0-1.0); Blood Urea Nitrogen 15 mg/dL (9-16); Calcium 9.5 mg/dL (8.4-10.2); Carbon Dioxide 25 mmol/L (22-29); Chloride 107 mmol/L (96-108); Cholesterol 300 mg/dL (<200); Estimated Glomerular Filt Rate > 60; Glucose Random 82 mg/dL (60-115); HDL Cholesterol 58 mg/dL (>40); LDL Cholesterol Calculated 215 mg/dL (<100); Potassium 3.9 mmol/L (3.3-5.1); Sodium 139 mmol/L (135-145); Total Protein 7.9 g/dL (6.5-8.0); Triglycerides 135 mg/dL (<150)
[2024-10-29 15:42] LABS: T4 Thyroxine 8.1 ug/dL (4.5-12.0)
[2024-10-30 12:55] LABS: Free Prostate Spec Ag 0.1 ng/mL; Percent Free Prostate Spec Ag 25 % (calc) (>25); Prostate Specific Ag Total 0.4 ng/mL (< OR = 4.0)
[2024-11-05 01:53] LABS: Testosterone, Free 76.1 pg/mL (35.0-155.0); Testosterone, Total 540 ng/dL (250-1100)
== END 2024-10-29 09:54 | disposition home or self-care (01) ==
LOC: HO.MANLDS 09:53
PROVIDERS: Visit Provider Physician Assistant
DX: Z00.00 Encounter for general adult medical examination without abnormal findings (principal); R89.1 Abnormal level of hormones in specimens from other organs, systems and tissues; Z13.1 Encounter for screening for diabetes mellitus; Z13.6 Encounter for screening for cardiovascular disorders
CPT/HCPCS: 36415; 80053; 80061; 83036; 84154; 84402; 84403; 84436; 84443; 85025